=== PATIENT | female | born 1965 | race African-American/Black ===

== ENCOUNTER 2017-03-18 22:25 | Emergency (ER) | payer BC ==
--- NOTE | ~2017-03-18 | CR173 ---
[facility] A Service of [facility] & [facility] RADIOLOGY TEXT RESULTS PATIENT: MARIO ALBERTO ROSADO LOCATION: CFTX : 65 UNIT #: [id number] AGE: [address]: Mirian Bauer APRN SEX: F ORDER DR: [id number] [facility] [address] [place], [place] [address] [id number] E MR#: [id number] Acc #: [id number] NAME: MARIO ALBERTO ROSADO : 1965 SEX: F STUDY DATE/TIME: 03/18/2017 22:56 UNIT: [facility] ROOM: STUDY DESCRIPTION: CR Knee 3 Views Rt Attending Physician: Mirian Bauer A.P.R.N. Ordering Physician: Mirian Bauer A.P.R.N. Primary Care Physician: Calvin Koehler M.D. MEDICAL IMAGING REPORT This report is preliminary unless electronic signature is present EXAM Right knee, 03/18/2017 HISTORY 51-year-old female in the ED after knee injury. Twisted knee while walking today. She complains of anterior knee pain and weakness. TECHNIQUE Three-view right knee series FINDINGS The examination is negative. No fracture, dislocation, arthropathy or other osseous abnormality. No visible joint effusion. IMPRESSION Negative right knee series. Dictated by... Aurelio Roque M.D. THIS IS AN ELECTRONICALLY VERIFIED REPORT Aurelio Roque M.D. at 03/19/2017 10:02 PM [place] TD: 03/19/2017 10:14 JOB #: [id number] MEDICAL IMAGING REPORT Page 1 of 1 COPY
[~2017-03-18 22:25] MED LIST: ACETAMINOPHEN PO; COUMADIN PO; FERROUS SULFATE PO; NORCO 5/325 TAB1 TAB PO; PHENERGAN PO; PRENATAL MULITV1 TAB PO; SENNA S TABLET1 TAB PO; TOPROL XL PO
== END 2017-03-18 23:25 | disposition home or self-care (01) ==
LOC: CED 22:25 → CFTX 22:25 → CED 22:54 → CFTX 23:25
DX: S83.91XA Sprain of unspecified site of right knee, initial encounter (principal); I10 Essential (primary) hypertension; Z88.0 Allergy status to penicillin; X50.1XXA Overexertion from prolonged static or awkward postures, initial encounter; Y92.009 Unspecified place in unspecified non-institutional (private) residence as the place of occurrence of the external cause
CPT/HCPCS: 29530; 73562; 99283